=== PATIENT | female | born 1975 ===

== ENCOUNTER 2018-03-16 16:38 | Outpatient (REF) | payer OTHER, SELFPAY ==
[2018-03-17 01:59] LABS: Abs Immature Grans 0.02 k/cumm (0.0-0.09); Absolute Basophil Count 0.03 k/cumm (0.0-0.2); Absolute Eosinophil Count 0.11 k/cumm (0.0-0.7); Absolute Lymphocyte Count 1.21 k/cumm (1.2-3.4); Absolute Monocyte Count 0.46 k/cumm (0.11-0.7); Absolute Neutrophil Count 5.65 k/cumm (1.2-6.7); Basophils % 0.4; Eosinophils % 1.5; HCT 41.3 % (36.0-46.0); HGB 14.2 g/dL (12.0-15.5); Immature Grans % 0.3; Lymphocytes % 16.2; Mean Corp. HGB Concentration 34.4 g/dL (32.0-36.0); Mean Corpuscular Volume 87.3 fL (80-95); Mean Platelet Volume 10.8 fL (8.0-11.0); Monocytes % 6.1; Neutrophils % 75.5; Platelet Count 201 x1000/uL (130-400); RBC 4.73 m/cumm (4.00-5.20); White Blood Cell Count 7.48 k/cumm (4.4-10.8)
[2018-03-17 03:18] LABS: ESR 5 MM/HR (0-20)
[2018-03-18 13:36] LABS: Lyme Ab w Rflx to Lyme Confirm Negative
[2018-03-19 12:29] LABS: Anaplasma phagocytophilum Negative (Negative); B. miyamotoi PCR Negative (Negative); Babesia divergens/MO-1 Negative (Negative); Babesia duncani Negative (Negative); Babesia microti Negative (Negative); Ehrlichia chaffeensis Negative (Negative); Ehrlichia ewingii/canis Negative (Negative); Ehrlichia muris eauclairensis Negative (Negative)
== END 2018-03-16 16:39 ==
LOC: NCHCN 16:38
PROVIDERS: PCP Nurse Practitioner Family; Visit Provider Family Medicine
DX: R22.42 Localized swelling, mass and lump, left lower limb (principal)
CPT/HCPCS: 85652; 85025; 86140; 86618; 87798